=== PATIENT | male | born 1955 | race Caucasian/White ===

== ENCOUNTER 2019-09-21 07:43 | Day surgery (SDC) | payer BC, MEDICARE ==
[~2019-09-21 07:43] MED LIST: Lactated Ringers 1,000 ML IV SCH; Lidocaine 2% 5 ML SDV ONE; Midazolam 1 MG/ML 2 ML SDV ONE; Ondansetron 4 MG/2 ML SDV ONE; Propofol 200 MG/20 ML SDV ONE; Sodium Chloride 0.9% 10 ML SDV IV PRN; Sodium Chloride 0.9% 10 ML Syringe FLUSH PRN; Sodium Chloride 0.9% 2.5 ML Syringe FLUSH PRN; ceFAZolin 2 GM in Premix Bag 1 BAG IV ONE; fentaNYL 250 MCG/5 ML SDV ONE
--- NOTE | 2019-09-21 08:20 | PCM.PREANE ---
Preanesthetic Assessment - Anesthesia/Transfusion/Family Hx Anesthesia History: Prior Anesthesia Reaction Other Type of Anesthesia Reaction Comment: gets very anxious post-op Family History of Anesthesia Reaction: No Transfusion History: No Prior Transfusion(s) - Review of Systems General: No Symptoms Pulmonary: No Symptoms Cardiovascular: No Symptoms Gastrointestinal: No Symptoms Neurological: No Symptoms Other: Reports: None - Physical Assessment NPO Status Date: 09/20/19 Vital Signs: Last Vital Signs Temp 98.2 F 09/21/19 08:14 Pulse 70 09/21/19 08:14 Resp 16 09/21/19 08:14 BP 132/85 09/21/19 08:14 Pulse Ox 96 09/21/19 08:14 Height: 5 ft 11 in Weight: 94.347 kg ASA Class: 2 Mental Status: Alert & Oriented x3 Airway Class: Mallampati = 2 Dentition: Reports: Leonard(s) (implants, lateral) ROM/Head Extension: Full Lungs: Clear to Auscultation, Normal Respiratory Effort Cardiovascular: Regular Rate, Regular Rhythm - Allergies Allergies/Adverse Reactions: Allergies Allergy/AdvReac Type Severity Reaction Status Date / Time No Known Allergies Allergy Verified 09/15/19 10:54 - Blood Blood Available: No - Anesthesia Plan Pre-Op Medication Ordered: None - Acknowledgements Anesthesia Type Planned: General Anesthesia Pt an Appropriate Candidate for the Planned Anesthesia: Yes Alternatives and Risks of Anesthesia Discussed w Pt/Guardian: Yes Pt/Guardian Understands and Agrees with Anesthesia Plan: Yes Additional Comments: PMH: bph, dm2, glaucoma, gout, htn, hld PLAN: ga/lma PreAnesthesia Questionnaire HEENT History: Reports: Glaucoma, Other (See Below) Other HEENT History: wears glasses Cardiovascular History: Reports: High Cholesterol, Hypertension Respiratory History: Reports: None Gastrointestinal History: Reports: Other (See Below) Other Gastrointestinal History: occasional heartburn Genitourinary History: Reports: BPH, Renal Calculus Other Genitourinary History: UTI Musculoskeletal History: Reports: Fracture, Gout Other Musculoskeletal History: hx of fx wrist Neurological History: Reports: None Psychiatric History: Reports: None Endocrine/Metabolic History: Reports: Diabetes, Type II Hematologic History: Reports: None Immunologic History: Reports: None Oncologic (Cancer) History: Reports: None Dermatologic History: Reports: None - Past Surgical History Head Surgeries/Procedures: Reports: None HEENT Surgical History: Reports: Oral Surgery Other HEENT Surgeries/Procedures: has 3 lower dental implants GI Surgical History: Reports: Cholecystectomy Male Surgical History: Reports: Lithotripsy (ESWL) Musculoskeletal Surgical History: Reports: Arthroscopic Knee - SUBSTANCE USE Smoking Status *Q: Never Smoker Recreational Drug Use History: No - HOME MEDS Home Medications: Home Meds Allopurinol [Zyloprim] 300 mg PO DAILY 08/11/16 [History] Aspirin [Burt Aspirin EC] 81 mg PO DAILY 08/11/16 [History] Enalapril/Hydrochlorothiazide [Enalapril-HCTZ 10-25 MG] 1 tab PO DAILY 08/11/16 [History] Fish Oil/DHA/EPA [Fish Oil 1,200 MG] 1 tab PO DAILY 08/11/16 [History] Gemfibrozil [Lopid] 600 mg PO BID 08/11/16 [History] Multivitamin [Multivitamins] 1 tab PO DAILY 08/11/16 [History] Pravastatin Sodium 10 mg PO BEDTIME 08/11/16 [History] Ubidecarenone [COQ-10] 10 mg PO DAILY 08/11/16 [History] metFORMIN [Glucophage XR] 500 mg PO BEDTIME 09/19/16 [History] Brimonidine Tartrate/Timolol [Combigan 0.2%-0.5% Eye Drops] 1 drop EYEBOTH BID 09/15/19 [History] Brinzolamide [Azopt 1% Ophth Susp] 1 drop EYELF BID 09/15/19 [History] Latanoprost/Pf [Latanoprost 0.005% Eye Drop] 1 drop EYEBOTH DAILY 09/15/19 [ History] Losartan [Cozaar] 25 mg PO QAM 09/15/19 [History] Tamsulosin [Flomax] 0.4 mg PO BEDTIME 09/15/19 [History] - CURRENT (IN HOUSE) MEDS Current Meds: Current Medications Lactated Ringer's (Ringers, Lactated) 1,000 mls @ 125 mls/hr IV ASDIRECTED PAUL Last Admin: 09/21/19 08:16 Dose: 125 mls/hr Sodium Chloride (Saline Flush) 10 ml FLUSH ASDIRECTED PRN PRN Reason: Keep Vein Open Sodium Chloride (Saline Flush) 2.5 ml FLUSH ASDIRECTED PRN PRN Reason: Keep Vein Open Sodium Chloride (Normal Saline) 10 ml IV ASDIRECTED PRN PRN Reason: IV Use Discontinued Medications Fentanyl (Sublimaze) Confirm Administered Dose 250 mcg .ROUTE .STK-MED ONE Stop: 09/21/19 07:08 Cefazolin Sodium/Dextrose 2 gm (/ Premix) 50 mls @ 100 mls/hr IV ONETIME ONE Stop: 09/18/19 09:27 Lidocaine (Xylocaine-Mpf 2%) Confirm Administered Dose 5 ml .ROUTE .STK-MED ONE Stop: 09/21/19 07:07 Midazolam HCl (Versed 1 Mg/Ml) Confirm Administered Dose 2 mg .ROUTE .STK-MED ONE Stop: 09/21/19 07:07 Ondansetron HCl (Zofran) Confirm Administered Dose 4 mg .ROUTE .STK-MED ONE Stop: 09/21/19 07:07 Propofol (Diprivan 20 Ml) Confirm Administered Dose 200 mg .ROUTE .STK-MED ONE Stop: 09/21/19 07:07
[2019-09-21] MEDS ORDERED: fentaNYL 100 MCG/2 ML SDV IVPUSH PRN (08:33)
[2019-09-21] MEDS ORDERED: EPINEPHrine 1:10,000 1 MG/10 ML Syringe IVPUSH PRN (08:33)
[2019-09-21] MEDS ORDERED: Naloxone 0.4 MG/ML Syringe IVPUSH PRN (08:33)
[2019-09-21] MEDS ORDERED: Albuterol 0.083% 2.5 MG/3 ML Neb Soln NEB PRN (08:33)
[2019-09-21] MEDS ORDERED: Atropine 0.1 MG/ML 10 ML Syringe IVPUSH PRN ×2 (08:33)
[2019-09-21] MEDS ORDERED: 50% Dextrose in Water 50 ML Syringe IVPUSH PRN (08:33)
[2019-09-21] MEDS ORDERED: ceFAZolin 1 GM Vial ONE (09:23)
[2019-09-21] MEDS ORDERED: Sodium Chloride 0.9% 20 ML ONE (09:23)
[2019-09-21] MEDS ORDERED: ePHEDrine 50 MG/ML SDV ONE (09:30)
[2019-09-21] MEDS ORDERED: Glycopyrrolate 0.2 MG/ML SDV ONE ×3 (09:30→10:54)
[2019-09-21] MEDS ORDERED: Phenylephrine 1% 10 MG/ML SDV ONE (10:20)
[2019-09-21] MEDS ORDERED: Metoprolol Tartrate 5 MG/5 ML SDV ONE (10:58)
[2019-09-21] MEDS ORDERED: Bupivacaine 0.5% 30 ML SDV ONE (11:25)
[2019-09-21] MEDS ORDERED: Ketorolac 30 MG/ML SDV IVPUSH ONE (12:39)
--- NOTE | 2019-09-21 12:49 | PCM.OPNOTE ---
- General Post-Op/Procedure Note Date of Surgery/Procedure: 09/21/19 Operative Procedure(s): Bilateral inguinal hernia repair Findings: Bilateral direct inguinal hernias R>L Pre Op Diagnosis: Bilateral inguinal hernia Post-Op Diagnosis: same Anesthesia Technique: General LMA, Local Primary Surgeon: Montserrat Holly Fluid Replacement, Intraop: 2,000 EBL in mLs: 10 Condition: Good Free Text/Narrative:: Intake & Output 09/20/19 09/21/19 09/21/19 22:59 06:59 14:59 Intake Total 2250 Balance 2250
[2019-09-21] MEDS ORDERED: Acetaminophen/oxyCODONE 325-5 MG Tab PO ONE (13:57)
[2019-09-21 14:09] VITALS: BP 136/76; PULSE 92
--- NOTE | 2019-09-21 16:59 | OR ---
SURGEON: MONTSERRAT HOLLY MD DATE OF PROCEDURE: 09/21/2019 PREOPERATIVE DIAGNOSIS: Bilateral inguinal hernias. POSTOPERATIVE DIAGNOSIS: Bilateral direct inguinal hernias. PROCEDURE PERFORMED: Bilateral inguinal hernia repair. PRIMARY SURGEON: Montserrat Holly MD. ANESTHESIA: General LMA, local. FLUIDS: 2000 mL crystalloid. ESTIMATED BLOOD LOSS: 10 mL. FINDINGS: Bilateral direct inguinal hernias, right greater than left. COMPLICATIONS: None. INDICATIONS: The patient is a 64-year-old male who presents with bilateral inguinal hernias confirmed by both clinical exam as well as CT. The patient and I discussed the need for repair. I explained the procedure, expected perioperative course, and risks including bleeding, infection, or damage to surrounding structures. He verbalized understanding and wishes to proceed. PROCEDURE IN DETAIL: The patient was brought into the OR and placed on the OR table in supine position. A time-out was completed verifying the patient's name, age, date of , allergies, and procedure to be performed. General LMA anesthesia was induced. The abdomen, groin, and genitalia were prepped and draped in usual standard fashion. I anesthetized an area 2 fingerbreadths above the pubic tubercle on either side with 0.5% Marcaine plain. I started my surgery on the right side. A 15 blade was used to make an oblique incision 1 fingerbreadth above the inguinal ligament. Cautery was used to dissect down to the level of the external oblique. The external oblique was identified and cleared down to the external ring. The external oblique was then incised along its fibers using a 15 blade scalpel. Metzenbaum scissors were then used to extend the incision in both directions opening up the external oblique down to the external ring. The external oblique was grasped with mosquitos on both sides. The cord and cord structures as well as the hernia sac were freed up circumferentially and a Marcelo drain was placed around the cord structures. The patient was noted to have a large direct inguinal hernia with most of the posterior wall of the inguinal canal attenuated. Because of its size, the decision was made not to place a patch into this area. Instead, a small patch was brought into the field. The mesh was sutured to the pubic tubercle medially along the ilioinguinal ligament inferiorly and along the conjoined tendon superiorly making a slit for the cord and cord structures. Attention was made to salvaging the ilioinguinal nerve, which was left above the repair. The mesh was sutured in place with interrupted 0 Ethibond sutures. A Valsalva maneuver was performed once the mesh was in place showing an intact repair with no recurrence of the hernia. The wound was irrigated with normal saline. The external oblique was then closed over the roof of the structure with a running 0 Vicryl suture taking care not to strangulate the cord and recreate the external ring. I then closed the fat overlying the canal with a running 3-0 Vicryl along the Mela's layer and interrupted 3-0 Vicryl along the skin. This was covered with a moistened lap, and I turned my attention to the left side. Again, I used a 15 blade to open up an oblique incision 1 fingerbreadth above the inguinal ligament. Cautery was used to dissect down through the layers of subcutaneous fat down to the external oblique fascia. The external oblique fascia was cleared off from the overlying fat and then incised along the length of its fibers with a 15 blade scalpel. Metzenbaum scissors were then used to extend the incision in both directions opening up the external oblique down to the external ring. The external oblique was elevated with hemostats. The cord and cord structures as well as the hernia sac were freed up circumferentially and a Marcelo drain was placed down around the cord structures. Again, the patient was noted to have a direct hernia defect containing fat. This was through a smaller opening than the right side. This was amenable to a patch. A small patch and plug were brought into the field. The direct hernia sac was reduced and a small patch was placed inside of this defect. It was secured on the superior and inferior edge using 0 Ethibond sutures. A small piece of mesh was then sutured to the pubic tubercle medially along the ilioinguinal ligament inferiorly and along the conjoined tendon superiorly making a slit for the cord and cord structures. The mesh was again sutured in place using interrupted 0 Ethibond sutures. Another Valsalva maneuver was performed, which showed an intact repair with no recurrent hernia. The wound was irrigated and dried. The external oblique was then closed over the roof of the structure again using a running 3-0 Vicryl suture. I closed the Mela's layer with a running 0 Vicryl suture. The subcutaneous fat layer underneath the skin was closed with interrupted 3-0 Vicryl sutures. I then closed both incisions with running 4-0 Monocryl sutures. Steri-Strips and sterile dressings were applied. The patient tolerated the procedure well and taken to the PACU in stable condition. All counts were complete and correct at the end of the case. ADITHYA MCKEON /[id number] LUCINA
== END 2019-09-21 15:05 | disposition home or self-care (01) ==
LOC: MW.SDS 07:43
PROVIDERS: ATTEND Surgery
DX: K40.20 Bilateral inguinal hernia, without obstruction or gangrene, not specified as recurrent (principal); I10 Essential (primary) hypertension; E11.9 Type 2 diabetes mellitus without complications; E78.5 Hyperlipidemia, unspecified; E78.00 Pure hypercholesterolemia, unspecified; M19.90 Unspecified osteoarthritis, unspecified site; Z79.82 Long term (current) use of aspirin; Z79.84 Long term (current) use of oral hypoglycemic drugs; Z79.899 Other long term (current) drug therapy
CPT/HCPCS: 49505; 82962; A9270; J0690; J1885; J2001; J2250; J2370; J2405; J2704; J3010; J3490; J7120; 00830; C1781

== ENCOUNTER 2023-07-18 19:22 | Emergency (ER) | payer MEDICARE, OTHER ==
[2023-07-18] MEDS ORDERED: Aspirin 81 MG Tab.Chew PO ONE (19:53)
[2023-07-18 20:04] LABS: BASOPHILS ABSOLUTE AUTO 0.03 K/uL (0.00-0.20); BASOPHILS PERCENT AUTO 0.6 % (0.0-1.0); EOSINOPHILS ABSOLUTE AUTO 0.19 K/uL (0.00-0.45); EOSINOPHILS PERCENT AUTO 3.7 % (0.0-6.0); HEMATOCRIT 36.5 % (42.0-52.0); IMMATURE GRAN ABSOLUTE AUTO 0.01 K/uL (0.00-0.05); IMMATURE GRAN PERCENT AUTO 0.2 % (0.0-0.4); LYMPHOCYTES ABSOLUTE AUTO 1.76 K/uL (1.00-4.80); LYMPHOCYTES PERCENT AUTO 34.4 % (24.0-44.0); MEAN CORPUSCULAR HEMOGLOBIN 33.9 pg (28.0-32.0); MEAN CORPUSCULAR HGB CONC 35.6 g/dL (32.0-36.0); MEAN CORPUSCULAR VOLUME 95.1 fL (83.0-99.0); MEAN PLATELET VOLUME 12.1 fL (9.4-12.4); MONOCYTES ABSOLUTE AUTO 0.57 K/uL (0.00-0.80); MONOCYTES PERCENT AUTO 11.2 % (0.0-8.0); NEUTROPHILS ABSOLUTE AUTO 2.55 K/uL (1.80-7.70); NEUTROPHILS PERCENT AUTO 49.9 % (41.0-71.0); PLATELET COUNT,PLT 188 K/uL (150-400); RED BLOOD CELL COUNT 3.84 M/uL (4.52-5.90); WHITE BLOOD CELL COUNT,WBC 5.11 K/uL (3.9-11.3)
[2023-07-18 20:14] LABS: BLOOD UREA NITROGEN,BUN 20 mg/dL (7.0-18.0); CALCIUM 9.2 mg/dL (8.5-10.1); CARBON DIOXIDE,CO2 29.8 mmol/L (21.0-32.0); CHLORIDE,CL 103 mmol/L (98-107); CREATININE 0.9 mg/dL (0.8-1.3); GLUCOSE RANDOM 158 mg/dL (74-106); POTASSIUM,K 3.2 mmol/L (3.5-5.1); SODIUM,NA 142 mmol/L (136-148)
[2023-07-18 20:16] LABS: ESTIMATED GFR 93 mL/min (>60)
[2023-07-18] MEDS ORDERED: Potassium Chloride 10% 20 MEQ/15 ML Soln 15 ML UD Cup PO ONE (20:43)
[2023-07-18 21:57] VITALS: BP 135/71; PULSE 68
== END 2023-07-18 21:46 | disposition home or self-care (01) ==
LOC: MW.ED 19:22
DX: R07.9 Chest pain, unspecified (principal); I10 Essential (primary) hypertension; E78.00 Pure hypercholesterolemia, unspecified; E11.9 Type 2 diabetes mellitus without complications; Z79.82 Long term (current) use of aspirin; Z79.84 Long term (current) use of oral hypoglycemic drugs; Z79.899 Other long term (current) drug therapy
CPT/HCPCS: 36415; 71046; 80048; 84484; 85025; 93005; 99285; A9270; 93010; 99283

== ENCOUNTER 2024-05-15 21:58 | Emergency (ER) | payer MEDICARE, OTHER ==
[2024-05-15] MEDS: Sodium Chloride 0.9% 10 ML Syringe FLUSH PRN (22:39)
[2024-05-15] MEDS: Ketorolac 30 MG/ML SDV IVPUSH ONE (22:39)
[2024-05-15] MEDS: fentaNYL 50 MCG/ML SDV IVPUSH ONE (22:39)
[2024-05-15] MEDS: Sodium Chloride 0.9% 1,000 ML IV ONE (22:39)
[2024-05-15] MEDS: Sodium Chloride 0.9% 2.5 ML Syringe FLUSH PRN (22:39)
[2024-05-15 22:50] LABS: APPEARANCE,URINE CLEAR; BILIRUBIN,URINE NEGATIVE (NEGATIVE); COLOR,URINE YELLOW; GLUCOSE,URINE >=1000 mg/dL (NEGATIVE); KETONES,URINE TRACE mg/dL (NEGATIVE); LEUKOCYTE ESTERASE,URINE NEGATIVE (NEGATIVE); NITRITE,URINE NEGATIVE (NEGATIVE); OCCULT BLOOD,URINE NEGATIVE (NEGATIVE); PROTEIN,URINE NEGATIVE (NEGATIVE)
[2024-05-15 23:01] LABS: BASOPHILS ABSOLUTE AUTO 0.02 K/uL (0.00-0.20); BASOPHILS PERCENT AUTO 0.3 % (0.0-1.0); EOSINOPHILS ABSOLUTE AUTO 0.46 K/uL (0.00-0.45); EOSINOPHILS PERCENT AUTO 6.3 % (0.0-6.0); HEMATOCRIT 35.1 % (42.0-52.0); HEMOGLOBIN 12.4 g/dL (14.0-18.0); IMMATURE GRAN ABSOLUTE AUTO 0.02 K/uL (0.00-0.05); IMMATURE GRAN PERCENT AUTO 0.3 % (0.0-0.4); LYMPHOCYTES ABSOLUTE AUTO 1.32 K/uL (1.00-4.80); LYMPHOCYTES PERCENT AUTO 17.9 % (24.0-44.0); MEAN CORPUSCULAR HEMOGLOBIN 33.7 pg (28.0-32.0); MEAN CORPUSCULAR HGB CONC 35.3 g/dL (32.0-36.0); MEAN CORPUSCULAR VOLUME 95.4 fL (83.0-99.0); MEAN PLATELET VOLUME 12.6 fL (9.4-12.4); MONOCYTES ABSOLUTE AUTO 1.14 K/uL (0.00-0.80); MONOCYTES PERCENT AUTO 15.5 % (0.0-8.0); NEUTROPHILS PERCENT AUTO 59.7 % (41.0-71.0); PLATELET COUNT,PLT 153 K/uL (150-400); RED BLOOD CELL COUNT 3.68 M/uL (4.52-5.90); WHITE BLOOD CELL COUNT,WBC 7.36 K/uL (3.9-11.3)
[2024-05-15 23:12] LABS: A/G RATIO 1.1 (0.9-1.6); ALBUMIN 3.6 g/dL (3.4-5.0); BILIRUBIN TOTAL 0.6 mg/dL (0.2-1.0); CALCIUM 9.1 mg/dL (8.5-10.1); CARBON DIOXIDE,CO2 30.1 mmol/L (21.0-32.0); CREATININE 1.4 mg/dL (0.8-1.3); EST CRCL DRUG DOSING (CG) 53.04 mL/min; POTASSIUM,K 3.4 mmol/L (3.5-5.1); PROTEIN TOTAL,TP 6.9 g/dL (6.4-8.2)
[2024-05-15 23:58] VITALS: BP 127/70; PULSE 58
== END 2024-05-15 23:58 | disposition home or self-care (01) ==
LOC: MW.ED 21:58
DX: N13.2 Hydronephrosis with renal and ureteral calculous obstruction (principal); I10 Essential (primary) hypertension; E78.00 Pure hypercholesterolemia, unspecified; Z79.82 Long term (current) use of aspirin; Z79.899 Other long term (current) drug therapy; Z79.84 Long term (current) use of oral hypoglycemic drugs; Z90.49 Acquired absence of other specified parts of digestive tract; Z75.8 Other problems related to medical facilities and other health care
CPT/HCPCS: 36415; 74176; 80053; 81003; 85025; 96361; 96374; 96375; 99284; J1885; J3010; J3490; J7030

== ENCOUNTER 2024-06-10 16:52 | Emergency (ER) | payer MEDICARE, OTHER ==
[2024-06-10 17:39] LABS: BASOPHILS ABSOLUTE AUTO 0.01 K/uL (0.00-0.20); BASOPHILS PERCENT AUTO 0.2 % (0.0-1.0); EOSINOPHILS ABSOLUTE AUTO 0.36 K/uL (0.00-0.45); EOSINOPHILS PERCENT AUTO 6.3 % (0.0-6.0); HEMATOCRIT 31.6 % (42.0-52.0); IMMATURE GRAN ABSOLUTE AUTO 0.01 K/uL (0.00-0.05); IMMATURE GRAN PERCENT AUTO 0.2 % (0.0-0.4); LYMPHOCYTES ABSOLUTE AUTO 1.41 K/uL (1.00-4.80); LYMPHOCYTES PERCENT AUTO 24.7 % (24.0-44.0); MEAN CORPUSCULAR HGB CONC 34.8 g/dL (32.0-36.0); MEAN CORPUSCULAR VOLUME 94.9 fL (83.0-99.0); MEAN PLATELET VOLUME 11.3 fL (9.4-12.4); MONOCYTES ABSOLUTE AUTO 0.74 K/uL (0.00-0.80); NEUTROPHILS ABSOLUTE AUTO 3.17 K/uL (1.80-7.70); NEUTROPHILS PERCENT AUTO 55.6 % (41.0-71.0); PLATELET COUNT,PLT 173 K/uL (150-400); RED BLOOD CELL COUNT 3.33 M/uL (4.52-5.90)
[2024-06-10 18:02] LABS: A/G RATIO 1.1 (0.9-1.6); ALBUMIN 3.4 g/dL (3.4-5.0); BILIRUBIN TOTAL 0.4 mg/dL (0.2-1.0); CARBON DIOXIDE,CO2 30.7 mmol/L (21.0-32.0); CREATININE 1.2 mg/dL (0.8-1.3); EST CRCL DRUG DOSING (CG) 61.88 mL/min; POTASSIUM,K 3.5 mmol/L (3.5-5.1); PROTEIN TOTAL,TP 6.6 g/dL (6.4-8.2)
[2024-06-10 18:26] LABS: APPEARANCE,URINE CLEAR; BILIRUBIN,URINE NEGATIVE (NEGATIVE); COLOR,URINE YELLOW; GLUCOSE,URINE NEGATIVE (NEGATIVE); KETONES,URINE NEGATIVE (NEGATIVE); LEUKOCYTE ESTERASE,URINE TRACE (NEGATIVE); NITRITE,URINE NEGATIVE (NEGATIVE); OCCULT BLOOD,URINE TRACE-INTACT (NEGATIVE); PROTEIN,URINE NEGATIVE (NEGATIVE)
[2024-06-10 18:35] LABS: BACTERIA,URINE RARE (NEGATIVE); EPITHELIAL CELLS,URINE RARE (NONE-FEW)
[2024-06-10] MEDS: Ketorolac 30 MG/ML SDV IVPUSH ONE (19:43)
[2024-06-10] MEDS: Acetaminophen 500 MG Tab PO ONE (19:43)
[2024-06-10 20:58] VITALS: BP 165/62; PULSE 70
== END 2024-06-10 22:04 | disposition left against medical advice (07) ==
LOC: MW.ED 16:52
DX: N13.2 Hydronephrosis with renal and ureteral calculous obstruction (principal); N21.0 Calculus in bladder; N48.89 Other specified disorders of penis; N30.01 Acute cystitis with hematuria; E78.00 Pure hypercholesterolemia, unspecified; I10 Essential (primary) hypertension; E11.9 Type 2 diabetes mellitus without complications; Z79.82 Long term (current) use of aspirin; Z79.84 Long term (current) use of oral hypoglycemic drugs; Z79.899 Other long term (current) drug therapy; Z75.8 Other problems related to medical facilities and other health care
CPT/HCPCS: 36415; 74176; 74176-26; 80053; 81001; 83690; 85025; 87086; 99284

== ENCOUNTER 2025-01-03 07:50 | Observation (INO) | payer MEDICARE, OTHER ==
[~2025-01-03 07:50] MED LIST changes: -Lactated Ringers 1,000 ML IV SCH; -Lidocaine 2% 5 ML SDV ONE; -Midazolam 1 MG/ML 2 ML SDV ONE; -Ondansetron 4 MG/2 ML SDV ONE; -Propofol 200 MG/20 ML SDV ONE; +Ropivacaine 49.25 ML, Ketorolac 30 MG, EPINEPHrine 0.5 MG, cloNIDine 80 MCG in Sodium C... INJECT SCH; -Sodium Chloride 0.9% 10 ML SDV IV PRN; -Sodium Chloride 0.9% 10 ML Syringe FLUSH PRN; -Sodium Chloride 0.9% 2.5 ML Syringe FLUSH PRN; -ceFAZolin 2 GM in Premix Bag 1 BAG IV ONE; -fentaNYL 250 MCG/5 ML SDV ONE
[2025-01-03] MEDS ORDERED: ceFAZolin 2 GM in Sodium Chloride 0.9% 50 ML IV SCH (08:00)
[2025-01-03] MEDS ORDERED: Morphine 2 MG/ML SYRINGE IVPUSH PRN (08:05)
[2025-01-03] MEDS ORDERED: fentaNYL 50 MCG/ML SDV IVPUSH PRN (08:05)
[2025-01-03] MEDS ORDERED: Metoclopramide 10 MG/2 ML SDV IVPUSH PRN (08:05)
[2025-01-03] MEDS ORDERED: Albuterol 0.083% 2.5 MG/3 ML Neb Soln NEB PRN (08:05)
[2025-01-03] MEDS ORDERED: Naloxone 0.4 MG/ML SDV IVPUSH PRN (08:05)
[2025-01-03] MEDS ORDERED: HYDROmorphone 1 MG/ML Syringe IVPUSH PRN (08:05)
[2025-01-03] MEDS ORDERED: Phenylephrine HCl In 0.9% NaCl 1 MG/10 ML Syringe IVPUSH PRN (08:05)
[2025-01-03] MEDS ORDERED: Ondansetron 4 MG/2 ML SDV IVPUSH PRN (08:05)
[2025-01-03] MEDS ORDERED: fentaNYL 100 MCG/2 ML SDV ONE (08:33)
[2025-01-03] MEDS ORDERED: Ketamine HCL/NACL, ISO-OSM 50 MG/5 ML Syringe ONE ×2 (08:33→08:34)
[2025-01-03] MEDS ORDERED: propofoL 500 MG/50 ML 50 ML ONE (08:33)
[2025-01-03] MEDS ORDERED: EPINEPHrine 1 MG/1 ML Amp ONE (08:37)
[2025-01-03] MEDS: Lactated Ringers 1,000 ML IV SCH (08:43)
[2025-01-03] MEDS ORDERED: Famotidine 20 MG/2 ML SDV ONE (08:46)
[2025-01-03] MEDS ORDERED: dexmedeTOMIDine HCl 200 MCG/2 ML SDV ONE (08:46)
[2025-01-03] MEDS ORDERED: Ropivacaine 0.5% 5 MG/ML 30 ML SDV ONE (08:47)
[2025-01-03] MEDS: Famotidine 20 MG/2 ML SDV IVPUSH SCH (08:51)
[2025-01-03] MEDS ORDERED: Tranexamic Acid 1,000 MG/10 ML Vial ONE (09:34)
[2025-01-03] MEDS ORDERED: Phenylephrine HCl In 0.9% NaCl 1 MG/10 ML Syringe ONE (10:59)
[2025-01-03] MEDS ORDERED: ceFAZolin 2 GM Vial ONE (11:00)
[2025-01-03] MEDS ORDERED: diphenhydrAMINE 25 MG Cap PO PRN (11:53)
[2025-01-03] MEDS ORDERED: Bisacodyl 10 MG Supp RECTAL PRN (11:53)
[2025-01-03] MEDS ORDERED: oxyCODONE 5 MG Tab PO PRN ×2 (11:53)
[2025-01-03] MEDS ORDERED: Sodium Chloride 0.9% 2.5 ML Syringe FLUSH PRN (11:53)
[2025-01-03] MEDS ORDERED: traMADol 50 MG Tab PO PRN (11:53)
[2025-01-03] MEDS ORDERED: Sodium Chloride 0.9% 10 ML Syringe FLUSH PRN (11:53)
[2025-01-03] MEDS: Acetaminophen 325 MG Tab PO SCH (13:54)
[2025-01-03] MEDS: Ketorolac 30 MG/ML SDV IVPUSH SCH ×2 (13:55→20:51)
[2025-01-03] MEDS: Tranexamic Acid in NACL,ISO-OS 1,000 MG in Premix Bag 1 BAG IV ONE (14:58)
[2025-01-03] MEDS: Ondansetron 4 MG/2 ML SDV IVPUSH PRN (15:53)
[2025-01-03] MEDS: BRINZOLAMIDE EYELF SCH (17:49)
[2025-01-03] MEDS: Brimonidine Tartrate/Timolol [Combigan 0.2%-0.5% Eye Drop] EYEBOTH SCH (17:49)
[2025-01-03] MEDS: ceFAZolin 2 GM in Sodium Chloride 0.9% 50 ML IV SCH (17:53)
[2025-01-03] MEDS ORDERED: Ondansetron 4 MG/2 ML SDV ONE (19:24)
[2025-01-03] MEDS: Docusate Sodium 100 MG Cap PO SCH (20:50)
[2025-01-03] MEDS: Aspirin 325 MG Tab PO SCH (20:55)
[2025-01-03] MEDS ORDERED: Latanoprost 0.005% Ophth Soln 2.5 ML Bottle EYEBOTH SCH (21:00)
[2025-01-03] MEDS ORDERED: 50% Dextrose in Water 50 ML Syringe IVPUSH PRN (21:04)
[2025-01-03] MEDS ORDERED: Glucagon,Human Recombinant 1 MG Vial IM PRN (21:04)
[2025-01-04 06:14] LABS: HEMATOCRIT 26.4 % (42.0-52.0); HEMOGLOBIN 8.7 g/dL (14.0-18.0)
[2025-01-04 06:27] LABS: CALCIUM 8.4 mg/dL (8.5-10.1); CARBON DIOXIDE,CO2 27.3 mmol/L (21.0-32.0); CREATININE 0.9 mg/dL (0.8-1.3); EST CRCL DRUG DOSING (CG) 78.86 mL/min; POTASSIUM,K 3.6 mmol/L (3.5-5.1)
[2025-01-04] MEDS: Ibuprofen 800 MG Tab PO SCH (08:17)
[2025-01-04] MEDS: Famotidine 20 MG Tab PO SCH (08:17)
[2025-01-04] MEDS: Polyethylene Glycol 3350 Powder 17 GM Packet PO SCH (08:17)
[2025-01-04] MEDS: Allopurinol 300 MG Tab PO SCH (08:17)
[2025-01-04] MEDS: Insulin Aspart 100 Units/ML 3 ML Pen SUBCUT SCH (08:18)
[2025-01-04 09:19] VITALS: BP 121/66; PULSE 80
[2025-01-04] MEDS: traMADol 50 MG Tab PO PRN (09:47)
[2025-01-04] MEDS ORDERED: Tamsulosin 0.4 MG Cap.ER PO SCH (22:00)
== END 2025-01-04 13:30 | disposition home or self-care (01) ==
LOC: MW.SDS 07:50 → MW.MS 11:59
PROVIDERS: ADMIT Orthopaedic Surgery; ATTEND Orthopaedic Surgery
DX: M17.12 Unilateral primary osteoarthritis, left knee (principal); I10 Essential (primary) hypertension; E78.00 Pure hypercholesterolemia, unspecified; E11.9 Type 2 diabetes mellitus without complications; Z79.899 Other long term (current) drug therapy
CPT/HCPCS: 27447; 36415; 73560; 80048; 82947; 83735; 85014; 85018; 86850; 86900; 86901; 97110; 97162; 97530; A9270; G0378; J0690; J0735; J1815; J1885; J2371; J2405; J2704; J2795; J3010; J7120; 01402; 64447; C1776; J3490